=== PATIENT | female | born 1970 | race American Indian/Alaskan Native ===

== ENCOUNTER 2020-05-29 15:22 | Emergency (ER) | payer SELFPAY ==
--- NOTE | 2020-05-29 15:52 | Event Note ---
ED Screening Note Date of service: 05/29/20 Time: 15:49 ED Screening Note: c/o epigastric abdominal pain and N/V x 3 days pain radiates into chest-burning sensation hx of HTN denies alcohol denies hx of GERD This initial assessment/diagnostic orders/clinical plan/treatment(s) is/are subject to change based on patients health status, clinical progression and re- assessment by fellow clinical providers in the ED. Further treatment and workup at subsequent clinical providers discretion. Patient/guardian urged not to elope from the ED as their condition may be serious if not clinically assessed and managed. Initial orders include: labs ekg
[2020-05-29 16:21] LABS: Basophils % (Auto) 0.4 % (0.0-1.8); Eosinophils % (Auto) 0.2 % (0.0-4.3); Hematocrit 41.4 % (30.3-42.9); Hemoglobin 14.4 gm/dl (10.1-14.3); Lymphocytes % (Auto) 26.2 % (13.4-35.0); Mean Corpuscular HGB Conc 35 % (30-34); Mean Corpuscular Volume 88 fl (79-97); Monocytes # (Auto) 0.6 K/mm3 (0.0-0.8); Monocytes % (Auto) 7.1 % (0.0-7.3); Platelet Count 243 K/mm3 (140-440); Red Blood Count 4.74 M/mm3 (3.65-5.03); Red Cell Distribution Width 12.3 % (13.2-15.2)
[2020-05-29 16:38] LABS: Alanine Aminotransferase 17 units/L (7-56); Albumin 4.5 g/dL (3.9-5); Blood Urea Nitrogen 9 mg/dL (7-17); Calcium 9.6 mg/dL (8.4-10.2); Hemolysis Index 12
[2020-05-29 16:43] LABS: BUN/Creatinine Ratio 13
[2020-05-29] MEDS ORDERED: MORPHINE 4 MG/1 ML INJ IV ONE (17:29)
[2020-05-29] MEDS ORDERED: SODIUM CHLORIDE 0.9% 1000 ML 1,000 ML IV ONE (17:29)
[2020-05-29] MEDS ORDERED: ONDANSETRON 4 MG/2 ML INJ IV ONE (17:29)
--- NOTE | 2020-05-29 18:44 | Cat Scan Report ---
CT ABDOMEN AND PELVIS WITH CONTRAST INDICATION: Epigastric pain, duration 2 days, elevated lipase CONTRAST: With IV COMPARISON: None available. All CT scans at this location are performed using CT dose reduction for ALARA by means of automated e xposure control. NOTE: Resolution is decreased and artifact is introduced by the patient's size. FINDINGS: Lung bases are clear. No pneumoperitoneum is seen. Liver is mildly enlarged and has a lengt h of 19.4 cm. A tiny left hepatic cyst is seen. Spleen is not enlarged. No other masses are seen. No urinary obstructive changes are noted. Gallbladder and bile ducts appear within normal limits. Pancre as shows no abnormalities with no evidence of inflammation. No lymphadenopathy is seen. Appendix appears within normal limits. Mild colonic diverticulosis is seen without evidence of divert iculitis. No evidence of bowel obstruction is seen. No focal inflammatory changes are noted. Uterus is enlarged, particularly in the fundus. In the right anterior adnexal area a 4.8 cm rounded m asslike soft tissue structure is seen which probably abuts the uterus though may be ovarian. I do not clearly see a separate right or left ovary. No free fluid is noted. IMPRESSION: 1. No acute abnormalities are seen. I do not see convincing radiographic evidence of pancreatitis. 2. Probable uterine fundal leiomyoma. Additionally, there is either a pedunculated right-sided fundal leiomyoma or a prominent right ovary/ovarian mass. This is thought unlikely to relate to the patient 's current symptoms. Follow-up in a nonurgent setting with ultrasound is suggested. Signer Name: Gamaliel Wasserman MD Signed: 05/29/2020 6:40 PM Workstation Name: [id number]
[2020-05-29 21:06] LABS: Bilirubin,Urine NEG (Negative); Blood,Urine MOD (Negative); Color,Urine Colorless (Yellow); Mucus,Urine FEW /HPF; Protein,Urine <15 mg/dL mg/dL (Negative); Urobilinogen,Urine < 2.0 mg/dL (<2.0)
[2020-05-29] MEDS ORDERED: ALUM-MAG HYDROXIDE-SIMETHICONE 200-200-20MG/5ML ORAL LIQD 30 ML PO ONE (22:57)
[2020-05-29] MEDS ORDERED: LIDOCAINE VISCOUS 2% 15 ML ORAL LIQD PO ONE (22:57)
--- NOTE | 2020-05-29 22:57 | Emergency Department Report ---
ED Abdominal Pain HPI - General Chief Complaint: Abdominal Pain Stated Complaint: ABD PAIN Time Seen by Provider: 05/29/20 15:48 Source: patient Mode of arrival: Ambulatory Limitations: No Limitations - History of Present Illness Initial Comments: 50-year-old female, history of hyperthyroidism, hypertension, presents to ED with abdominal pain x3 days. Patient reports associated nausea, vomiting, diarrhea as well. She denies any fever. Patient reports pain is located in the epigastric area and feels like a burning and sharp pain. Patient states she is able to tolerate liquids, however, not solids. Patient reports some occasional alcohol use, but no recent use prior to abdominal pain. Patient also requesting a refill for her HCTZ 25 mg and amlodipine 10 mg. PCP: Jairon Esposito MD Complaint: abdominal pain -: days(s) (3) Location: epigastric Radiation: chest Migration to: no migration Severity: moderate Severity scale (0 -10): 3 Quality: sharp, burning Consistency: intermittent Improves With: nothing Worsens With: nothing, eating Associated Symptoms: nausea, vomiting, diarrhea. denies: fever - Related Data Previous Rx's Medication Instructions Recorded Last Taken Type Dicyclomine [Bentyl] 20 mg PO QID PRN #20 tablet 05/29/20 Unknown Rx Ondansetron [Zofran Odt] 4 mg PO Q8HR PRN #20 tab.rapdis 05/29/20 Unknown Rx amLODIPine 10 mg PO DAILY #30 tab 05/29/20 Unknown Rx hydroCHLOROthiazide [HCTZ] 25 mg PO QDAY #30 tablet 05/29/20 Unknown Rx Allergies Allergy/AdvReac Type Severity Reaction Status Date / Time No Known Allergies Allergy Unverified 05/29/20 15:52 ED Review of Systems ROS: Stated complaint: ABD PAIN Other details as noted in HPI Comment: All other systems reviewed and negative Constitutional: denies: chills, fever Gastrointestinal: abdominal pain, nausea, vomiting, diarrhea ED Past Medical Hx - Past Medical History Previous Medical History?: Yes Hx Hypertension: Yes Additional medical history: ectopic . hyperthyroid - Surgical History Past Surgical History?: Yes Additional Surgical History: x 1 - Medications Home Medications: Home Medications Medication Instructions Recorded Confirmed Last Taken Type Dicyclomine [Bentyl] 20 mg PO QID PRN #20 tablet 05/29/20 Unknown Rx Ondansetron [Zofran Odt] 4 mg PO Q8HR PRN #20 tab.rapdis 05/29/20 Unknown Rx amLODIPine 10 mg PO DAILY #30 tab 05/29/20 Unknown Rx hydroCHLOROthiazide [HCTZ] 25 mg PO QDAY #30 tablet 05/29/20 Unknown Rx ED Physical Exam - General Limitations: No Limitations General appearance: alert, in no apparent distress - Head Head exam: Present: atraumatic, normocephalic - Eye Eye exam: Present: normal appearance, EOMI - ENT ENT exam: Present: mucous membranes moist - Neck Neck exam: Present: normal inspection - Respiratory Respiratory exam: Present: normal lung sounds bilaterally. Absent: respiratory distress - Cardiovascular Cardiovascular Exam: Present: regular rate, normal rhythm - GI/Abdominal GI/Abdominal exam: Present: soft, tenderness (Epigastric). Absent: distended - Extremities Exam Extremities exam: Present: normal inspection - Neurological Exam Neurological exam: Present: alert, oriented X3 - Psychiatric Psychiatric exam: Present: normal affect, normal mood - Skin Skin exam: Present: warm, dry, intact, normal color ED Course Vital Signs 05/29/20 05/29/20 05/29/20 15:52 18:11 23:20 Temperature 98.3 F 97.8 F Pulse Rate 99 H 91 H 72 Respiratory 16 18 18 Rate Blood Pressure 152/98 138/89 144/72 [Right] O2 Sat by Pulse 98 98 97 Oximetry ED Medical Decision Making - Lab Data Result diagrams: 05/29/20 16:03 05/29/20 16:03 - EKG Data -: EKG Interpreted by [facility] EKG shows normal: sinus rhythm, axis, intervals, QRS complexes, ST-T waves Rate: normal - EKG Data Interpretation: no acute changes - Radiology Data Radiology results: report reviewed, image reviewed - Medical Decision Making 50-year-old female presents to ED with epigastric pain, vomiting, diarrhea. Patient has some elevation in her lipase level, however no overt pancreatitis seen on CT. Patient given medication here in the ED and is feeling much better at this time. Patient comfortable with discharge home. Abdomen is currently soft, minimally tender. Will discharge with prescriptions. Clear liquid diet recommended. Outpatient follow-up advised, return precautions given. - Differential Diagnosis GERD, pancreatitis, gastritis Critical care attestation.: If time is entered above; I have spent that time in minutes in the direct care of this critically ill patient, excluding procedure time. ED Disposition Clinical Impression: Pancreatitis, acute, Hypokalemia Disposition: DC-01 TO HOME OR SELFCARE Is pt being admited?: No Condition: Stable Instructions: Acute Pancreatitis, [id number], Pancreatitis Eating Plan, Clear Liquid Diet, Adult, Abdominal Pain (ED) Prescriptions: amLODIPine 10 mg PO DAILY #30 tab Dicyclomine [Bentyl] 20 mg PO QID PRN #20 tablet PRN Reason: abdominal pain hydroCHLOROthiazide [HCTZ] 25 mg PO QDAY #30 tablet Ondansetron [Zofran Odt] 4 mg PO Q8HR PRN #20 tab.rapdis PRN Reason: Vomiting Referrals: PRIMARY CARE,MD [Primary Care Provider] - 3-5 Days Forms: Work/School Release Form(ED) Time of Disposition: 23:02
[2020-05-29] MEDS ORDERED: POTASSIUM CHLORIDE ER 20 MEQ TAB PO ONE (23:04)
[2020-05-29 23:20] VITALS: BP 144/72
== END 2020-05-29 23:22 | disposition home or self-care (01) ==
LOC: ED 15:22
DX: K85.90 Acute pancreatitis without necrosis or infection, unspecified (principal); E87.6 Hypokalemia; I10 Essential (primary) hypertension; Z79.899 Other long term (current) drug therapy; Z98.890 Other specified postprocedural states
CPT/HCPCS: 36415; 74177; 80053; 81001; 83690; 84484; 85025; 93005; 96361; 96374; 96375; 99284; J2270; J2405; J7030; Q9967